=== PATIENT | female | born 1970 | race African-American/Black ===

== ENCOUNTER 2019-10-04 06:30 | Day surgery (SDC) | payer OTHER ==
--- NOTE | 2019-10-02 15:17 | RAD REPORT ---
EXAM DESCRIPTION: RAD - Chest Pa And Lat (2 Views) - 10/02/2019 3:05 pm CLINICAL HISTORY: preop, left shoulder soft tissue mass removal pending COMPARISON: July 2013 TECHNIQUE: Frontal and lateral views of the chest were obtained. FINDINGS: The lungs are clear. Heart size is normal and central vasculature is within normal limit s. No pleural effusion or pneumothorax seen. No acute bony finding noted. No aortic abnormality. IMPRESSION: No acute cardiopulmonary process.
[2019-10-02 15:19] LABS: Absolute Lymphocytes (CBC) 2.5 K/uL (0.7-4.9); Basophils % 0.7 % (0-1.3); Hematocrit 44.3 % (36.0-45.0); Lymphocytes % 40.8 % (15.3-44.8); MPV 8.9 fL (7.6-11.3); RBC Red Blood Cell Count 5.05 M/uL (3.86-4.86)
[2019-10-02 15:25] LABS: Potassium 3.6 mmol/L (3.5-5.1)
--- NOTE | 2019-10-02 16:39 | EKG ---
Test Date: 2019-10-02 Test Time: 13:46:12 Hairspring Truer: CAMPBELL MEASUREMENT RESULTS: Intervals: Rate: 92 WY: 134 QRSD: 82 QT: 344 QTc: 425 Pe Ell: P: 63 WY: 134 QRS: 67 T: 43 INTERPRETIVE STATEMENTS: Normal sinus rhythm Normal ECG Compared to ECG 07/20/2013 22:48:29 Sinus tachycardia no longer present Electronically Signed On 10-02-19 16:39:38 CDT by Sanjay Rivers
[2019-10-04 06:50] LABS: Specific Gravity >= 1.030 (1.005-1.030)
[2019-10-04] MEDS ORDERED: Ringers Lactate 1,000 ML IV ONE (06:56)
[2019-10-04] MEDS ORDERED: propofoL 200 MG/20 ML VIAL IV ONE ×2 (07:46→09:23)
[2019-10-04] MEDS ORDERED: MIDAZOLAM HCL 2 MG/2 ML INJ ONE ×2 (07:46→09:23)
[2019-10-04] MEDS ORDERED: FENTANYL CITR 100 MCG/2 ML ONE ×2 (07:46→09:23)
[2019-10-04] MEDS ORDERED: LIDOCAINE 1% MPF 5 ML VIAL ONE (07:46)
[2019-10-04] MEDS ORDERED: CEFAZOLIN/SWI 1gm 1 GM/10 ML SYR ONE (08:28)
[2019-10-04] MEDS ORDERED: dexAMETHasone 10 MG/ML VIAL ONE (09:23)
[2019-10-04] MEDS ORDERED: ONDANSETRON 4 MG/2 ML VIAL ONE ×2 (09:24→11:13)
[2019-10-04] MEDS ORDERED: ROCURONIUM 50 MG/5 ML VIAL IV ONE (09:24)
[2019-10-04] MEDS ORDERED: LIDOCAINE 2% MPF 5 ML VIAL ONE (09:24)
[2019-10-04] MEDS ORDERED: KETOROLAC 30 MG/ML INJ ONE (10:18)
--- NOTE | 2019-10-04 10:59 | P.BOP ---
Preoperative diagnosis: enlarging tender back subQ mass Postoperative diagnosis: same Primary procedure: Excisional biopsy of large and enlarging tender back subQ mass Secondary procedure: with erythematous skin Legal Arbitrator: Monica Viera Estimated blood loss: <10cc Specimen: mass Findings: large mass, skin cyanosis improved color after mass effect removed Anesthesia: General Complications: None Drain(s): CURRY drain Transferred to: Recovery Room Condition: Good
[2019-10-04] MEDS: MEPERIDINE HCL 25 MG/0.5 ML ONE ×2 (11:11→11:17)
[2019-10-04] MEDS: HYDROMORPHONE HCL 1 MG/ML INJ ONE ×2 (11:20→11:25)
[2019-10-04 11:30] VITALS: O2SAT 98
[2019-10-04 13:05] VITALS: BP 122/65; TEMP 97.6
--- NOTE | 2019-10-04 21:12 | OP ---
Date of Procedure: 10/04/2019 Surgeon: Dane Soler MD Preoperative Diagnosis: Enlarging tender back subcutaneous mass. Postoperative Diagnosis: Enlarging tender back subcutaneous mass plus an erythema and cyanosis of th e skin. Procedure: Excisional biopsy of large enlarging tender back subcutaneous mass. Anesthesia: General plus local. Findings: Patient has a large mass in the area of the upper back. The mass was so large that is extending the skin making the skin erythematous and bluish in color. I cannot rule out any i nfection in that area. So, the patient was placed in an urgent procedure for excisional biopsy of la rge tender enlarging mass. The benefits, alternatives, and risks were fully explained to the patient , which include but are not limited to infection, bleeding, damage to adjacent structures, anesthesia complication, recurrence, OR, and even . She also understands this may not relieve the symptom s. She might need more than one surgical intervention. She understood, signed a consent. Description Of Procedure: Patient was brought to the operating room, placed in supine position. Ane sthesia was done without complication. A time-out was called. Previously, the area was marked by me and the patient in the holding room. Patient placed in lateral decubitus position with proper protec tion. An incision was made in the area of the skin. Incision was carried down to deep subcutaneous tissue. Mass was carefully enucleated. It goes all the way down to fascia of the muscle. The muscl e seems not to be involved. I did not see any pus in this area. At this moment, other erythematous area cannot rule out an infection. So, once I removed the lump, I irrigated the area, obtained hemos tasis and then put a CURRY drain in that area exiting through an another site secured in place with 3-0 nylon and the skin was closed with 3-0 chromic in the subcutaneous fashion and 4-0 PDS for the skin. Patient tolerated the procedure well. Patient was sent to recovery in stable conditio n. LISBET/ISRAEL Voice ID: [id number] Report ID: [id number]
--- NOTE | 2019-10-04 21:21 | DS ---
Date of Discharge: 10/04/2019 Diagnosis: Large enlarging tender back subcutaneous mass. Procedure: Excisional biopsy of large enlarging tender back mass. Disposition: Home. Activity: As tolerated. No heavy lifting. Followup: CURRY drain to record output every 24 hours. Medications: Include Bactrim DS p.o. b.i.d. and Tylenol No. 3 q.4 hours p.r.n. pain. LISBET/ISRAEL Voice ID: [id number] Report ID: [id number]
== END 2019-10-04 13:36 | disposition home or self-care (01) ==
LOC: OR 06:30
PROVIDERS: ATTEND Surgery
PROC: 0JB70ZZ Excision of Back Subcutaneous Tissue and Fascia, Open Approach (ICD-10-PCS; principal; 2019-10-04 08:30)
DX: D17.1 Benign lipomatous neoplasm of skin and subcutaneous tissue of trunk (principal); I10 Essential (primary) hypertension; Z79.899 Other long term (current) drug therapy; Z97.5 Presence of (intrauterine) contraceptive device; R23.0 Cyanosis
CPT/HCPCS: 93005; 85025; 80048; 36415; 81025; 82947; 88304; 71046; 21931; J2704; J2250; J3010; J2175; J1170; J0690; J7120; J2405 ×2; J1100